=== PATIENT | female | born 1945 | race Caucasian/White ===

== ENCOUNTER 2023-04-14 23:23 | Inpatient (IN) | payer MEDICARE, SELFPAY ==
[2023-04-14] MEDS ORDERED: Calcium Chloride 1 GM/10 ML Abboject SYRINGE ONE (23:25)
[2023-04-14] MEDS ORDERED: EPINEPHrine 1 MG/10 ML Abboject SYRINGE ONE (23:25)
[2023-04-14] MEDS ORDERED: Amiodarone 150 MG/3 ML VIAL ONE (23:25)
[2023-04-14] MEDS ORDERED: Sodium Bicarb 50 MEQ/50 ML Abboject 8.4% SYRINGE ONE (23:25)
[2023-04-14] MEDS ORDERED: Insulin Regular 300 UNITS/3 ML VIAL ONE (23:43)
[2023-04-14 23:45] LABS: Actual Bicarbonate (HCO3a) 16.9 mEq/L (22-28); Analyzer IN Cardio ER; Calcium, Ionized (arterial) 1.36 mmol/L (1.12-1.30); Hematocrit-ABG 34 % (36.0-47.0); Hemoglobin (Hb) 11.5 g/dL (12.0-16.0); Potassium - ABG Lab 5.23 mmol/L (3.70-5.30)
[2023-04-14 23:47] LABS: Puncture Site RBA; pH, Arterial 7.183 (7.35-7.45)
[2023-04-14] MEDS ORDERED: NOREPINEPHRINE 8 MG/250 ML-D5W 250 ML ONE (23:53)
[2023-04-15 00:03] LABS: #Monocytes 0.3 thou/uL (0.11-0.59); #Neutrophils 3.9 thou/uL (1.40-6.50); %Basophils 0.2 % (0.0-1.0); %Eosinophils 0.1 % (0.0-10.0); %Lymphocytes 52.8 % (21.0-51.0); %Monocytes 2.8 % (0.0-10.0); %Neutrophils 41.5 % (42.0-75.0); Hematocrit 35.8 % (36.0-47.0); Hemoglobin 11.3 g/dL (12.0-16.0); Mean Corpuscular HGB CONC 31.6 g/dL (32.0-36.0); Mean Corpuscular Hemoglobin 30.7 pg (27.0-31.0); Mean Corpuscular Volume 97.3 fl (78.0-98.0); Mean Platelet Volume 10.2 fL (7.4-10.4); Platelet Count 258 10x3/uL (130-400); RBC Distribution Width 13.1 % (11.5-14.5); Red Blood Cell (RBC) Count 3.68 mill/uL (4.20-5.40); White Blood Cell (WBC) Count 9.4 10x3/uL (4.8-10.8)
[2023-04-15] MEDS ORDERED: Vasopressin 20 UNITS/ML VIAL ONE (00:22)
[2023-04-15 00:36] LABS: ALT (SGPT) 205 U/L (8-55); AST (SGOT) 198 U/L (5-34); Albumin 3.3 g/dL (3.4-4.8); Alkaline Phosphatase 77 U/L (40-110); Anion Gap 24 mmol/L (10-20); BUN (Urea Nitrogen) 11 mg/dL (9.8-20.1); Bilirubin, Total 0.2 mg/dL (0.2-1.2); Calc. Creatinine Clearance 0 mL/min (70-130); Calcium 9.9 mg/dL (7.8-10.44); Carbon Dioxide 17 mmol/L (23-31); Chloride 100 mmol/L (98-107); Estimated GFR 56; Globulin 2.6 g/dL (2.4-3.5); Potassium 3.6 mmol/L (3.5-5.1); Protein, Total 5.9 g/dL (5.8-8.1); Sodium 137 mmol/L (136-145)
[2023-04-15 00:38] LABS: Troponin I 0.081 ng/mL (< 0.028)
[2023-04-15 00:39] LABS: Glucose 407 mg/dL (83-110)
[2023-04-15] MEDS ORDERED: methylPREDNISolone Sod Succ/PF 125 MG/2 ML VIAL ONE (01:40)
[2023-04-15] MEDS ORDERED: Acetaminophen 325 MG TAB PER TUBE PRN (02:00)
[2023-04-15] MEDS ORDERED: Ondansetron PF 4 MG/2 ML Vial IVP PRN (02:00)
[2023-04-15] MEDS ORDERED: HumaLOG 300 UNITS/3 ML VIAL SC PRN ×2 (02:05→03:39)
[2023-04-15] MEDS ORDERED: Dextrose 50% Abboject 50 ML SYRINGE SLOW IVP PRN (02:05)
[2023-04-15] MEDS ORDERED: Dextrose 5% in Water 1,000 ML IV PRN (02:05)
[2023-04-15] MEDS ORDERED: Glucagon 1 MG/ML KIT IM PRN (02:05)
[2023-04-15 02:07] LABS: Bacteria/HPF None Seen HPF (None Seen); Bilirubin Negative (Negative); Blood, Urine 1+ (Negative); CAUTI Indications for Culture Alt mental st,lethar; Clarity Clear (Clear); Glucose, Urine (Dipstick) 150 mg/dL (Negative); Ketone, Urine Trace mg/dL (Negative); Leukocyte Negative Leu/uL (Negative); Nitrite Negative (Negative); Protein, Urine (Dipstick) 70 mg/dL (Neg-Trace); Squamous Epithelial 0-3 HPF (0-3); Urobilinogen Normal mg/dL (Less than 2); pH, Urine 8.5 (5.0-9.0)
[2023-04-15 02:09] LABS: Urine Culture Reflex Yes Yes
[2023-04-15] MEDS ORDERED: Ipratropium/Albuterol 3 ML NEB EZPAP PRN (02:24)
[2023-04-15 02:38] LABS: INR-International Normal Ratio 3.9; Prothrombin Time 40.2 sec (12.0-14.7)
[2023-04-15 02:39] LABS: PTT 35.4 sec (22.9-36.1)
[2023-04-15] MEDS ORDERED: Phenylephrine 40 MG/NS 250 ML 40 MG in Premix 1 BAG IVPB SCH (02:45)
[2023-04-15 02:58] LABS: Anion Gap 22 mmol/L (10-20); BUN (Urea Nitrogen) 13 mg/dL (9.8-20.1); Calc. Creatinine Clearance 0 mL/min (70-130); Calcium 8.9 mg/dL (7.8-10.44); Carbon Dioxide 16 mmol/L (23-31); Chloride 107 mmol/L (98-107); Estimated GFR 59; Glucose 388 mg/dL (83-110); Potassium 4.7 mmol/L (3.5-5.1); Sodium 140 mmol/L (136-145)
[2023-04-15] MEDS ORDERED: Sodium Bicarbonate 150 MEQ in Sterile Water 1,000 ML IV SCH ×2 (03:00→03:41)
[2023-04-15 03:06] LABS: Lactic Acid 6.2 mmol/L (0.5-2.2)
[2023-04-15] MEDS ORDERED: Vasopressin 20 UNITS in Sodium Chloride 0.9% 50 ML IV SCH (03:30)
[2023-04-15] MEDS ORDERED: Electrolyte Replacement Protocol 1 EACH FS PRN (03:45)
[2023-04-15 03:54] LABS: #Monocytes 0.4 thou/uL (0.11-0.59); #Neutrophils 11.1 thou/uL (1.40-6.50); %Basophils 0.2 % (0.0-1.0); %Lymphocytes 8.9 % (21.0-51.0); %Monocytes 3.4 % (0.0-10.0); %Neutrophils 86.5 % (42.0-75.0); Hematocrit 29.9 % (36.0-47.0); Hemoglobin 9.9 g/dL (12.0-16.0); Mean Corpuscular HGB CONC 33.1 g/dL (32.0-36.0); Platelet Count 223 10x3/uL (130-400); RBC Distribution Width 13.2 % (11.5-14.5); Red Blood Cell (RBC) Count 3.19 mill/uL (4.20-5.40); White Blood Cell (WBC) Count 12.9 10x3/uL (4.8-10.8)
[2023-04-15 04:02] LABS: Hemoglobin A1c 6.4 % (4.0-6.0)
[2023-04-15 04:10] LABS: Magnesium 1.5 mg/dL (1.6-2.6)
[2023-04-15 04:14] LABS: Mean Corpuscular Volume 93.7 fl (78.0-98.0)
[2023-04-15 04:16] LABS: Bilirubin Negative (Negative); Blood, Urine 3+ (Negative); CAUTI Indications for Culture Alt mental st,lethar; Clarity Turbid (Clear); Glucose, Urine (Dipstick) 500 mg/dL (Negative); Ketone, Urine Trace mg/dL (Negative); Leukocyte Negative Leu/uL (Negative); Nitrite Negative (Negative); Protein, Urine (Dipstick) 70 mg/dL (Neg-Trace); RBC/HPF 21-50 HPF (0-3); Specific Gravity, Urine 1.019 (1.002-1.036); Urobilinogen Normal mg/dL (Less than 2)
[2023-04-15 04:16] LABS: ALT (SGPT) 201 U/L (8-55); AST (SGOT) 242 U/L (5-34); Albumin 2.4 g/dL (3.4-4.8); Alkaline Phosphatase 60 U/L (40-110); Anion Gap 16 mmol/L (10-20); BUN (Urea Nitrogen) 14 mg/dL (9.8-20.1); Bilirubin, Total 0.4 mg/dL (0.2-1.2); Calc. Creatinine Clearance 0 mL/min (70-130); Carbon Dioxide 18 mmol/L (23-31); Chloride 109 mmol/L (98-107); Estimated GFR 62; Glucose 413 mg/dL (83-110); Potassium 4.4 mmol/L (3.5-5.1); Protein, Total 4.4 g/dL (5.8-8.1); Sodium 139 mmol/L (136-145)
[2023-04-15 04:22] LABS: Bacteria/HPF 1+ HPF (None Seen)
[2023-04-15 04:25] LABS: Critical Call Chem Troponin I ICU.RH3 @0424; Troponin I 3.553 ng/mL (< 0.028)
[2023-04-15 04:54] VITALS: BMI 30.7
[2023-04-15] MEDS: NOREPINEPHRINE 8 MG/250 ML-D5W 250 ML IVPB SCH ×2 (04:59→09:30)
[2023-04-15] MEDS: Ipratropium/Albuterol 3 ML NEB NEB SCH ×2 (06:58→12:00)
[2023-04-15 07:40] VITALS: BP 167/127
[2023-04-15 07:50] LABS: Base Excess (BEa) -5.9 mEq/L (-2.0 to +3.0); CO2 Tension 26.5 mmHg (35.0-45.0); Calcium, Ionized (arterial) 1.13 mmol/L (1.12-1.30); Carboxyhemoglobin (COHb) 0.2 gm% (0.0-3.0); Hematocrit-ABG 36 % (36.0-47.0); Hemoglobin (Hb) 12.2 g/dL (12.0-16.0); O2 Tension (PaO2), arterial 516.9 mmHg (> 70.0); Potassium - ABG Lab 3.38 mmol/L (3.70-5.30); pH, Arterial 7.426 (7.35-7.45)
[2023-04-15 08:01] LABS: ALV-art Gradient 162.975 mmHg (0-20); Puncture Site RBA
[2023-04-15] MEDS ORDERED: Pantoprazole 40 MG VIAL IVP SCH (09:00)
[2023-04-15] MEDS ORDERED: Iopamidol-370 76% 500 ML MDV (1 ML CHARGE) ONE (09:23)
[2023-04-15 10:29] LABS: Actual Bicarbonate (HCO3a) 19.4 mEq/L (22-28); Base Excess (BEa) -3.8 mEq/L (-2.0 to +3.0); CO2 Tension 29.7 mmHg (35.0-45.0); Calcium, Ionized (arterial) 1.12 mmol/L (1.12-1.30); Carboxyhemoglobin (COHb) 0.1 gm% (0.0-3.0); Hematocrit-ABG 36 % (36.0-47.0); Hemoglobin (Hb) 12.3 g/dL (12.0-16.0); O2 Tension (PaO2), arterial 181.4 mmHg (> 70.0); Potassium - ABG Lab 3.47 mmol/L (3.70-5.30); pH, Arterial 7.432 (7.35-7.45)
[2023-04-15 10:30] LABS: ALV-art Gradient 137.975 mmHg (0-20); Puncture Site RRA
[2023-04-15 11:06] LABS: Actual Bicarbonate (HCO3a) 21.4 mEq/L (22-28); Base Excess (BEa) -4.8 mEq/L (-2.0 to +3.0); CO2 Tension 43.6 mmHg (35.0-45.0); Calcium, Ionized (arterial) 1.16 mmol/L (1.12-1.30); Carboxyhemoglobin (COHb) 0.4 gm% (0.0-3.0); Hematocrit-ABG 36 % (36.0-47.0); Hemoglobin (Hb) 12.3 g/dL (12.0-16.0); O2 Tension (PaO2), arterial 148.5 mmHg (> 70.0); pH, Arterial 7.308 (7.35-7.45)
[2023-04-15 11:07] LABS: Puncture Site RRA
[2023-04-15 11:22] LABS: Actual Bicarbonate (HCO3a) 24.8 mEq/L (22-28); Base Excess (BEa) -6.3 mEq/L (-2.0 to +3.0); Calcium, Ionized (arterial) 1.22 mmol/L (1.12-1.30); Carboxyhemoglobin (COHb) 0.4 gm% (0.0-3.0); Hematocrit-ABG 36 % (36.0-47.0); Hemoglobin (Hb) 12.4 g/dL (12.0-16.0); O2 Tension (PaO2), arterial 77.5 mmHg (> 70.0); Potassium - ABG Lab 3.51 mmol/L (3.70-5.30)
[2023-04-15] MEDS ORDERED: Magnesium 2 GM/50 ML(in water) 2 GM in Premix 1 BAG IVPB SCH (11:30)
[2023-04-15 11:31] LABS: CO2 Tension 81.3 mmHg (35.0-45.0); pH, Arterial 7.102 (7.35-7.45)
[2023-04-15 12:23] VITALS: TEMP 99
== END 2023-04-15 14:30 | disposition expired | DRG 64 ==
LOC: ERS 23:23 → EDBD 23:23 → CCU 04-15 02:00
PROVIDERS: ADMIT Internal Medicine; ATTEND Family Medicine
PROC: 4A133R1 Monitoring of Arterial Saturation, Peripheral, Percutaneous Approach (ICD-10-PCS; 2023-04-14)
PROC: 3E043XZ Introduction of Vasopressor into Central Vein, Percutaneous Approach (ICD-10-PCS; 2023-04-14)
PROC: 0T9B70Z Drainage of Bladder with Drainage Device, Via Natural or Artificial Opening (ICD-10-PCS; principal; 2023-04-15)
PROC: 06HY33Z Insertion of Infusion Device into Lower Vein, Percutaneous Approach (ICD-10-PCS; 2023-04-15)
PROC: 5A12012 Performance of Cardiac Output, Single, Manual (ICD-10-PCS; 2023-04-15)
PROC: 0DH67UZ Insertion of Feeding Device into Stomach, Via Natural or Artificial Opening (ICD-10-PCS; 2023-04-15)
PROC: 5A1935Z Respiratory Ventilation, Less than 24 Consecutive Hours (ICD-10-PCS; 2023-04-15)
DX: I61.4 Nontraumatic intracerebral hemorrhage in cerebellum (principal); J96.01 Acute respiratory failure with hypoxia; I47.20 Ventricular tachycardia, unspecified; E87.20 Acidosis, unspecified; C15.9 Malignant neoplasm of esophagus, unspecified; Z66 Do not resuscitate; Z51.5 Encounter for palliative care; I48.20 Chronic atrial fibrillation, unspecified; C78.02 Secondary malignant neoplasm of left lung; C78.01 Secondary malignant neoplasm of right lung; C77.9 Secondary and unspecified malignant neoplasm of lymph node, unspecified; I46.2 Cardiac arrest due to underlying cardiac condition; Z88.5 Allergy status to narcotic agent; Z91.041 Radiographic dye allergy status; E78.00 Pure hypercholesterolemia, unspecified; I10 Essential (primary) hypertension; Z98.890 Other specified postprocedural states; I46.8 Cardiac arrest due to other underlying condition; Z82.49 Family history of ischemic heart disease and other diseases of the circulatory system; F17.210 Nicotine dependence, cigarettes, uncomplicated; R73.9 Hyperglycemia, unspecified; Z79.01 Long term (current) use of anticoagulants; R57.0 Cardiogenic shock; J44.9 Chronic obstructive pulmonary disease, unspecified; J98.2 Interstitial emphysema
CPT/HCPCS: 31500; 36416; 36556; 36600; 51702; 70450; 71045; 71275; 72125; 74018; 80048; 80053; 81001; 82010; 82533; 82805; 83036; 83605; 83735; 84484; 85025; 85610; 85730; 87086; 92950; 93005; 93306; 94002; 94640; 96365; 96366; 96368; 96375; 99292; A4217; C9113; J0171; J0282; J0283; J1815; J2930; J3475; J7620; Q9967